=== PATIENT | male | born 1955 | race Two or more races ===

== ENCOUNTER 2019-07-26 23:38 | Inpatient (IN) | payer BC ==
[~2019-07-26] VITALS: Ht 167.6 cm; Wt 91.0 kg
[2019-07-27] VITALS (7 sets, daily range): BP systolic 120–186; BP diastolic 60–95
[2019-07-27] LABS: BASOPHILS % (AUTO) 0.4 % (0-1); EOSINOPHILS # (AUTO) 0.1 X10'3 (0-0.9); EOSINOPHILS % (AUTO) 1.4 % (0-6); HEMATOCRIT 43.4 % (42.0-52.0); HEMOGLOBIN 14.7 g/dl (14.0-17.9); LYMPHOCYTES # (AUTO) 2.6 X10'3 (1.1-4.8); MEAN CORPUSCULAR HEMOGLOBIN 30.5 PG (27.0-31.0); MEAN CORPUSCULAR HGB CONC 33.9 g/dL (33.0-36.5); MONOCYTES # (AUTO) 0.7 X10'3 (0-0.9); MONOCYTES % (AUTO) 8.4 % (2-12); NEUTROPHILS # (AUTO) 4.3 X10'3 (1.8-7.7); NEUTROPHILS % (AUTO) 55.8 % (42-75); PLATELET COUNT 197 X10'3 (140-440); RED BLOOD COUNT 4.82 X10'6 (4.70-6.10); RED CELL DISTRIBUTION WIDTH 13.4 % (11.5-14.5); WHITE BLOOD COUNT 7.7 X10'3 (4.5-11.0)
[2019-07-27] MEDS ORDERED: NO HOME MEDS
[2019-07-27 00:05] LABS: PARTIAL THROMBOPLASTIN TIME 26 SECONDS (22-32)
[2019-07-27 00:09] LABS: ALANINE AMINOTRANSFERASE 55 U/L (12-78); ALBUMIN 3.6 G/DL (3.4-5.0); ALBUMIN/GLOBULIN RATIO 0.9 (1.1-1.5); ALKALINE PHOSPHATASE 92 IU/L (46-116); ANION GAP 10 (8-16); ASPARTATE AMINO TRANSFERASE 24 U/L (10-37); BILIRUBIN,TOTAL 0.6 MG/DL (0.1-1.0); BLOOD UREA NITROGEN 22 MG/DL (7-18); BUN/CREATININE RATIO 19.6 (5.4-32.0); CALCIUM 8.4 MG/DL (8.5-10.1); CHLORIDE 106 MMOL/L (99-107); CREATININE 1.12 MG/DL (0.60-1.10); GLUCOSE 92 MG/DL (70-104); POTASSIUM 3.9 MMOL/L (3.5-5.1); SODIUM 144 MMOL/L (135-145); TOTAL CARBON DIOXIDE 27.8 MMOL/L (24-32); TOTAL PROTEIN 7.4 G/DL (6.4-8.2); eGFR 66 ML/MIN
--- NOTE | 2019-07-27 00:19 | NUR ---
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 NOTIFIED DR ZAMAN. 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 NOTIFIED DR ZAMAN.
[2019-07-27] MEDS ORDERED: nitroGLYCERIN 0.4mg/hour patch TD ONE (00:40)
[2019-07-27] MEDS ORDERED: normal saline 1000ML IV soln IVB ONE (00:40)
[2019-07-27] MEDS ORDERED: acetaminophen 325mg tablet PO PRN ×2 (01:30)
[2019-07-27] MEDS ORDERED: potassium CL 10mEq/100ml bag 100 ML IV PRN ×2 (01:30)
[2019-07-27] MEDS ORDERED: magnesium 2GM in 50ml NS 50 ML IV PRN (01:30)
[2019-07-27] MEDS ORDERED: potassium Cl 20 mEq SR tablet PO PRN ×2 (01:30)
[2019-07-27] MEDS ORDERED: ondansetron/PF 4mg/2ml inj IV PRN (01:30)
[2019-07-27] MEDS ORDERED: enoxaparin 100mg/ml syringe SUBCUT SCH (01:30)
[2019-07-27] MEDS ORDERED: mag hydrox/Alum hydrox/simeth 30ml oral suspension PO PRN (01:30)
[2019-07-27] MEDS ORDERED: magnesium 4gm in 100ml NS 100 ML IV PRN (01:30)
[2019-07-27] MEDS: enoxaparin 60mg/0.6ml syringe SUBCUT SCH ×3 (01:46→20:30)
[2019-07-27] MEDS: enoxaparin 30mg/0.3ml syringe SUBCUT SCH ×3 (01:46→20:30)
--- NOTE | 2019-07-27 01:52 | NUR ---
CALLED REPORT TO NIYAH SANTANA ON PCU, CASE DISCUSSED, QUESTIONS ANSWERED, PT TO BE TRANSPORTED BY RN ON TELEMONITOR TO FLOOR, NIYAH SANTANA AGREES TO ASSUME CARE OF PATIENT. PT TO BE TRANSPORTED TO FLOOR WITH ALL BELONGINGS.
--- NOTE | 2019-07-27 02:00 | NUR ---
Patient in room PCU 3014. I have received report from Ric SANTANA in ED and had the opportunity to ask questions and assume patient care.
--- NOTE | 2019-07-27 03:51 | NUR ---
Page Sent promotional table spacer PAGER ID: [phone] MESSAGE: [id number] Kevin Traore here for SVT. 3hr Trop is 0.78 from previous 0.87. asymptomatic. Just letting you know. Kirk 1963
--- NOTE | 2019-07-27 05:17 | NUR ---
Orientee documentation: I have reviewed and agree with all interventions, assessments performed and documented by Durga SANTANA.
--- NOTE | 2019-07-27 06:05 | NUR ---
Patient in room PCU 3014. I have received report from Kirk SANTANA and had the opportunity to ask questions and assume patient care.
--- NOTE | 2019-07-27 06:35 | NUR ---
Patient in room PCU 3014. I have received report from Hua RN and MAX [employer] and had the opportunity to ask questions and assume patient care.
--- NOTE | 2019-07-27 06:51 | NUR ---
Paged Dr. Drew regarding elevated troponin. PAGER ID: [phone] MESSAGE: RE 3014a Kevin Traore Troponin 0.80 this am. Thanks, Oma moore [id number]
[2019-07-27] MEDS: hydrALAZINE 20mg/ml inj. IV PRN ×2 (07:28→15:26)
[2019-07-27] MEDS: docusate sod 100mg capsule PO SCH ×2 (07:28→20:00)
[2019-07-27] MEDS: K and/or MAG REPLACEMENT MC SCH (08:00)
--- NOTE | 2019-07-27 09:29 | NUR ---
PAGER ID: [phone] MESSAGE: RE: Kevin MarquezLeón, Room: 3014B. Pt's past records from [facility] are now in chart. -[facility] #[id number] Dr. Lopez paged concerning Pt's past medical records being faxed over from [facility]
[2019-07-27 15:12] LABS: CHOL/HDL RATIO 5.1 (0.00-4.99); CHOLESTEROL 163 MG/DL (0-200); HDL CHOLESTEROL 32 MG/DL (35-60); LDL CHOLESTEROL 103 MG/DL (50-100); TRIGLYCERIDES 139 MG/DL (20-135)
--- NOTE | 2019-07-27 15:14 | NUR ---
CRITICAL LAB VALUE TAKEN, REPORTED TO PRIMARY RN.
--- NOTE | 2019-07-27 15:22 | NUR ---
PAGER ID: [phone] MESSAGE: Re: Kevin Traore, Room: [facility] [place][note 2]4B. Critical 12hr trop 0.64. Trending down from previous trops. -[facility] #[id number] Dr. Lopez paged concerning Pt's 12hr trop .64
--- NOTE | 2019-07-27 18:02 | NUR ---
Problems reprioritized. Patient report given, questions answered & plan of care reviewed with Kirk SANTANA.
--- NOTE | 2019-07-27 18:26 | NUR ---
Patient in room PCU 3014. I have received report from Danielito SANTANA and had the opportunity to ask questions and assume patient care.
--- NOTE | 2019-07-27 18:26 | NUR ---
Patient in room PCU 3014. I have received report from Danielito SANTANA and had the opportunity to ask questions and assume patient care.
[2019-07-27] MEDS ORDERED: iohexol 350MG/ML 100ml bottle IV ONE (19:04)
[2019-07-27] MEDS: carvedilol 6.25mg tablet PO SCH (20:29)
[2019-07-28 02:00] VITALS: BP 136/61
[2019-07-28 06:00] VITALS: BP 157/79
[2019-07-28 06:02] LABS: BASOPHILS % (AUTO) 0.4 % (0-1); EOSINOPHILS # (AUTO) 0.1 X10'3 (0-0.9); HEMATOCRIT 42.7 % (42.0-52.0); HEMOGLOBIN 14.5 g/dl (14.0-17.9); LYMPHOCYTES # (AUTO) 1.6 X10'3 (1.1-4.8); LYMPHOCYTES % (AUTO) 21.7 % (21-51); MEAN CORPUSCULAR HEMOGLOBIN 30.4 PG (27.0-31.0); MEAN CORPUSCULAR VOLUME 89.4 FL (78-98); MEAN PLATELET VOLUME 9.5 FL (7.4-10.4); MONOCYTES # (AUTO) 0.6 X10'3 (0-0.9); MONOCYTES % (AUTO) 7.5 % (2-12); NEUTROPHILS # (AUTO) 5.2 X10'3 (1.8-7.7); NEUTROPHILS % (AUTO) 69.4 % (42-75); PLATELET COUNT 193 X10'3 (140-440); RED BLOOD COUNT 4.77 X10'6 (4.70-6.10); RED CELL DISTRIBUTION WIDTH 13.3 % (11.5-14.5); WHITE BLOOD COUNT 7.5 X10'3 (4.5-11.0)
--- NOTE | 2019-07-28 06:10 | NUR ---
Patient in room PCU 3014. I have received report from Kirk SANTANA and had the opportunity to ask questions and assume patient care.
--- NOTE | 2019-07-28 06:11 | NUR ---
Orientee documentation: I have reviewed and agree with all interventions, assessments performed and documented by Durga SANTANA.
--- NOTE | 2019-07-28 06:13 | NUR ---
Problems reprioritized. Patient report given, questions answered & plan of care reviewed with Danielito SANTANA.
[2019-07-28 06:17] LABS: ANION GAP 9 (8-16); BLOOD UREA NITROGEN 17 MG/DL (7-18); BUN/CREATININE RATIO 16.5 (5.4-32.0); CALCIUM 8.5 MG/DL (8.5-10.1); CHLORIDE 108 MMOL/L (99-107); CREATININE 1.03 MG/DL (0.60-1.10); GLUCOSE 90 MG/DL (70-104); SODIUM 142 MMOL/L (135-145); TOTAL CARBON DIOXIDE 25.3 MMOL/L (24-32); eGFR 72 ML/MIN
[2019-07-28 06:18] LABS: ALANINE AMINOTRANSFERASE 42 U/L (12-78); ALBUMIN 3.4 G/DL (3.4-5.0); ALBUMIN/GLOBULIN RATIO 0.9 (1.1-1.5); ALKALINE PHOSPHATASE 86 IU/L (46-116); ASPARTATE AMINO TRANSFERASE 16 U/L (10-37); BILIRUBIN,TOTAL 0.9 MG/DL (0.1-1.0); MAGNESIUM 2.1 MG/DL (1.5-2.4); TOTAL PROTEIN 7.1 G/DL (6.4-8.2)
[2019-07-28] MEDS: carvedilol 6.25mg tablet PO SCH (07:34)
[2019-07-28] MEDS: docusate sod 100mg capsule PO SCH (07:34)
[2019-07-28] MEDS: enoxaparin 30mg/0.3ml syringe SUBCUT SCH (07:35)
[2019-07-28] MEDS: enoxaparin 60mg/0.6ml syringe SUBCUT SCH (07:35)
[2019-07-28] MEDS ORDERED: atorvastatin 20mg tablet PO SCH (08:00)
[2019-07-28] MEDS: K and/or MAG REPLACEMENT MC SCH (08:00)
[2019-07-28] MEDS ORDERED: CARV6.253 PO (10:47)
[2019-07-28] MEDS ORDERED: ATOR20TA66 PO (10:47)
[2019-07-28] MEDS ORDERED: ASPI-1264 PO (10:47)
[2019-07-28 11:00] VITALS: BP 148/84
--- NOTE | 2019-07-28 14:20 | NUR ---
Pt DC'd home with friend. IV's removed, canulas intact. Tele-box removed and returned to tele-tech. Pt stable and vitals WNL at [place]. Scripts given to Pt to fill at pharmacy of choice in [facility]. DC paperwork gone over with Pt and allowed Pt to ask questions concerning DC and new meds and then answered them. Pt will make follow up with PCP when he returns home to [facility] in [facility]. Belongings gathered and sent with Pt. Pt wheeled down to lobby in wheel chair via nursing program chair and then left in private vehicle with family friend.
== END 2019-07-28 15:00 | disposition home or self-care (01) | DRG 314 ==
LOC: ER 23:38 → ED HOLD 07-27 02:01 → PCU 3S 07-27 02:06 → OBSVTOIN 07-27 09:30
PROVIDERS: ADMIT Family Medicine; ATTEND Internal Medicine
PROC: B32T1ZZ Computerized Tomography (CT Scan) of Left Pulmonary Artery using Low Osmolar Contrast (ICD-10-PCS; principal; 2019-07-27)
PROC: B3201ZZ Computerized Tomography (CT Scan) of Thoracic Aorta using Low Osmolar Contrast (ICD-10-PCS; 2019-07-27)
PROC: B32S1ZZ Computerized Tomography (CT Scan) of Right Pulmonary Artery using Low Osmolar Contrast (ICD-10-PCS; 2019-07-27)
DX: I51.81 Takotsubo syndrome (principal); I50.21 Acute systolic (congestive) heart failure; I47.1 Supraventricular tachycardia; E78.5 Hyperlipidemia, unspecified; I48.0 Paroxysmal atrial fibrillation; Z79.82 Long term (current) use of aspirin; Z79.899 Other long term (current) drug therapy; Z88.8 Allergy status to other drugs, medicaments and biological substances
CPT/HCPCS: 36415; 71045; 71260; 80053; 80061; 83735; 83880; 84484; 85025; 85610; 85730; 87081; 93005; 93306; 96360; 99285; G0378; J0360; J1650; Q9967